=== PATIENT | male | born 1965 | race Caucasian/White ===

== ENCOUNTER 2018-05-26 08:41 | Emergency (ER) | payer SELFPAY ==
[2018-05-26] MEDS ORDERED: KETOROLAC TROMETHAMINE 60 MG/2 ML VIAL IM ONE (09:08)
[2018-05-26] MEDS ORDERED: ORPHENADRINE CITRATE 60 MG/2ML IM ONE (09:08)
--- NOTE | 2018-05-26 09:11 | ED Physician Documentation ---
Low Back Pain - HISTORIAN Historian: patient - HPI Stated Complaint: back pain Chief Complaint: Low Back Pain/ Injury History: history of chronic pain: Onset: days ago (05/24) Duration: continues in ED Severity: moderate Quality: similar- prior back pain Worsened By:: nothing Relieved By: nothing Further Comments: yes (52 year old male patient presents to ER requesting injection for back pain. Reports 5 year history of back pain related to L4-L5 injury, patient chose not to have surgical intervention. States he does not have a doctor or medical insurance, so he goes to the ER when his back "acts up".) - ROS CONST: no problems CVS/RESP: none EYES/ENT: none MS/SKIN/LYMPH: none Neuro/Psych: none GI/: denies: abdominal pain - PAST HX Past History: back injury, back pain Allergies/Adverse Reactions: Allergies Allergy/AdvReac Type Severity Reaction Status Date / Time ibuprofen Allergy Verified 05/26/18 08:57 Home Medications: Ambulatory Orders Medication Instructions Recorded NK 05/26/18 - SOCIAL HX Smoking History: cigarettes - FAMILY HX Family History: denies: none - VITAL SIGNS Vital Signs: Vital Signs Temp Pulse Resp BP Pulse Ox 97.9 F 60 14 112/68 96 05/26/18 08:49 05/26/18 09:47 05/26/18 09:47 05/26/18 09:47 05/26/18 09:47 - REVIEWED ASSESSMENTS Nursing Assessment Reviewed: Yes Vitals Reviewed: Yes ED Results Lab/Radiology - Orders Orders: ED Orders Category Date Time Status Ketorolac Tromethamine [Toradol] Med 05/26/18 09:08 Discontinued 60 mg IM NOW ONE Orphenadrine Citrate [Norflex] Med 05/26/18 09:08 Discontinued 60 mg IM NOW ONE Low Back Pain/Injury - Physical Exam General Appearance: mild distress EENT: eye inspection normal, ELBERT Resp/CVS: chest non-tender, breath sounds nml, heart sounds nml, no resp. di stress, lungs clear, reg. rate & rhythm Abdomen: non-tender, no organomegaly, no pulsatile mass Back: muscle spasm (lumber - right paraspinous muscles) Straight Leg Raising: No: Negative Left (patient will not lie down for testing; standing for comfort) Neuro/Psych: oriented x3, motor nml, sensation nml, bilat. doriflexion nml, reflexes nml, mood/affect nml Skin: normal color, warm/dry, NR, INT, PAL, DR Extremities: non-tender, normal range of motion, no evidence of injury, no edema, J, RENEWABLE ENERGY TECHNICIAN Discharge Clincal Impression: Myalgia Chronic back pain Qualifiers: Back pain location: low back pain Back pain laterality: right Sciatica presence: without sciatica Qualified Code(s): M54.5 - Low back pain; G89.29 - Other chronic pain Referrals: Primary Doctor,No [Primary Care Provider] - 2 Days Additional Instructions: Ice Rest Elevation You may use Tylenol every 4hour as needed for pain. Limit your dose to less than 4 G per day. Do not take ibuprofen, aleve, naproxen or any other NSAID while you are on toradol. You may want to try massage, over the counter lidocaine patches, biofreeze, abril ocampo or aspercream . If you are unable to bear weight and continuing to have significant pain on day 3-4; see your PCP for re-evaluation and additional xrays. Condition: Stable Disposition: 01 HOME, SELF-CARE Decision to Admit: NO Decision Time: 09:11
[2018-05-26 09:49] VITALS: BP 112/68
== END 2018-05-26 09:47 | disposition home or self-care (01) ==
LOC: ED 08:41
DX: M79.18 Myalgia, other site (principal); M54.5 Low back pain; G89.29 Other chronic pain
CPT/HCPCS: J1885; J2360; 96372; 99284

== ENCOUNTER 2018-10-14 14:22 | Emergency (ER) | payer SELFPAY ==
[2018-10-14] MEDS ORDERED: TETRACAINE 0.5% OPTH 5 ML BOTTLE OP ONE (14:41)
[2018-10-14 14:45] VITALS: BP 106/59
[2018-10-14] MEDS ORDERED: DIPH,PERTUSS(ACELL),TET VAC/PF 0.5 ML DISP.SYRIN IM ONE (14:53)
--- NOTE | 2018-10-14 15:19 | ED Physician Documentation ---
Eye Trauma - HISTORIAN Historian: patient - HPI Stated Complaint: L eye pain Chief Complaint: Eye Trauma (FB in left eye) Additional Information: Patient is a 53-year-old male that presents to the ER with c/o a piece of metal to the left eye. He states that he was sharpening a metal chair saw and thinks a piece of metal flew into his eye. He has been irrigating with water all day- he has been rubbing at it because it is irritating. He states that his vision is fine- denies blurred vision- but feels like he has something to the upper eye. Onset: hours (At 9 a.m.) Associated symptoms: pain, burining, itching, redness, foreign body. denies: decreased vision, blurred vision Location: left eye Severity: moderate Apparent Injury: possibly Context: foreign body. 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 denies: problems with vision GI/: denies: nausea, vomiting NEURO: denies: headache - PAST HX Past History: none Immunizations: denies: tetanus (unknown- will update today) Allergies/Adverse Reactions: Allergies Allergy/AdvReac Type Severity Reaction Status Date / Time ibuprofen Allergy Verified 10/14/18 14:45 Home Medications: Ambulatory Orders Medication Instructions Recorded Cyclopentolate HCl 2% Opth(Nf) 1 drop OP DAILY #1 bottle 10/14/18 [Cyclogyl 2% (Nf)] Sulfacetamide Sodium 2 drop OP QID #1 bottle 10/14/18 - SOCIAL HX Smoking History: greater than 1 pack/day Alcohol Use: rarely Drug Use: none - FAMILY HX Family History: no significant history - VITAL SIGNS Vital Signs: Vital Signs Temp Pulse Resp BP Pulse Ox 98.7 F 56 L 16 106/59 96 10/14/18 14:22 10/14/18 14:22 10/14/18 14:22 10/14/18 14:22 10/14/18 14:22 - REVIEWED ASSESSMENTS Nursing Assessment Reviewed: Yes Vitals Reviewed: Yes Procedures - Eye Procedure Alcaine Drops Administered: Yes Eye FB Removal: removal w/ needle Eye Irrigated w/ Saline (ccs): 60 Progress: Antibiotic drops ordered for infection and pain Progress - Progress Progress: Patient feels much better after FB removal- had patient wait until numbing drops wore off and reevaluated- states eye is much better- he no longer feels the foreign body- he states it is still a little "irritating"- educated on corneal abrasions and educated on using the eye drops as directed. ED Results Lab/Radiology - Orders Orders: ED Orders Category Date Time Status Diph,Pertuss(Acell),Tet Vac/Pf [Adacel] Med 10/14/18 14:53 Discontinued 0.5 ml IM .ONCE ONE Tetracaine HCl/Pf [Pontocaine Pf 0.5% Opth] Med 10/14/18 14:41 Discontinued 1 OP .STK-MED ONE Eye Trauma Physical Exam - Physical Exam General Appearance: alert, mild distress Examined with Slit Lamp: Yes Visual Acuity Right 20/: 30 Visual Acuity Left 20/: 30 Visual Acuity: no globe trauma Eyelids: nml inspection Conjunctiva and Sclera: injected (L) Corneas: foreign body (L), abrasion (L), fluorescein dye uptake (L), examined with fluorescein (L) EOM's: intact Pupils: PERRL Anterior Chambers: nml inspection Head/ENT: nml inspection, pharynx nml Skin: nml color, warm Neck/Back: nml inspection Respiratory: no resp distress, breath sounds normal CVS: heart sounds normal, equal pulses Neuro/Psych: oriented x3, neuro intact, mood/affect nml Discharge Clincal Impression: Foreign body of left eye, Corneal abrasion, left Prescriptions: Cyclopentolate HCl 2% Opth(Nf) [Cyclogyl 2% (Nf)] 1 drop OP DAILY #1 bottle Sulfacetamide Sodium 2 drop OP QID #1 bottle Referrals: Primary Doctor,No [Primary Care Provider] - 2 Days Additional Instructions: Sulfacetamide drops- 2 drops into the affected eye 4 times a day Cyclopentolate 1-2 drops daily to the affected eye until eye is healed Good hand washing DO NOT RUB THE EYE Follow up with business transformation manager this week if no improvement in 24 hours Return to ER if you develop severe pain or loss of vision to the eye Condition: Good Disposition: 01 HOME, SELF-CARE Decision to Admit: NO Decision Time: 15:30
== END 2018-10-14 15:27 | disposition home or self-care (01) ==
LOC: ED 14:22
DX: T15.02XA Foreign body in cornea, left eye, initial encounter (principal); X58.XXXA Exposure to other specified factors, initial encounter; Y93.89 Activity, other specified; Y92.009 Unspecified place in unspecified non-institutional (private) residence as the place of occurrence of the external cause
CPT/HCPCS: 65220; 90471; 90715; 99283

== ENCOUNTER 2018-10-18 12:43 | Emergency (ER) | payer SELFPAY ==
--- NOTE | 2018-10-18 13:19 | ED Physician Documentation ---
General Adult - HISTORIAN Historian: patient - HPI Stated Complaint: flu-like illness Chief Complaint: General Adult Onset: days ago Timing: still present Severity: moderate Further Comments: yes (Pt is a 53 yo male with flu-like sx. Pt has had sinus pain and cough. Pt is a heavy smoker.) - ROS CONST: no problems EYES/ENT: nasal congestion, other (sinus pain) CVS/RESP: cough GI/: none MS/SKIN/LYMPH: none - PAST HX Past History: none Allergies/Adverse Reactions: Allergies Allergy/AdvReac Type Severity Reaction Status Date / Time ibuprofen Allergy Verified 10/18/18 13:34 Home Medications: Ambulatory Orders Medication Instructions Recorded Cyclopentolate HCl 2% Opth(Nf) 1 drop OP DAILY #1 bottle 10/14/18 [Cyclogyl 2% (Nf)] Sulfacetamide Sodium 2 drop OP QID #1 bottle 10/14/18 - SOCIAL HX Smoking History: cigarettes - FAMILY HX Family History: No - VITAL SIGNS Vital Signs: Vital Signs Temp Pulse Resp BP Pulse Ox 106/59 10/14/18 15:27 - REVIEWED ASSESSMENTS Nursing Assessment Reviewed: Yes Vitals Reviewed: Yes Progress - Progress Progress: CXR: No focal infiltrate. Possible small lung nodule at the right lung base. In this high risk patient, chest CT would be recommended in an effort to exclude small mass. This follow-up chest CT could be obtained on a nonemergent basis. CT chest: HISTORY: 53-year-old male with abnormal chest x-ray demonstrating possible right lung nodule. COMPARISON: Chest x-ray from earlier same day. TECHNIQUE: Helical CT images of the chest were performed without contrast. Sagittal and coronal reformatted images were obtained. FINDINGS: There is a calcified granuloma in the right middle lobe (image 35, series 4), which corresponds to the nodule seen on recent chest x-ray. No suspicious pulmonary nodules are identified here. The lungs are hyperexpanded without bullous emphysematous changes. There is central peribronchial thickening and mild mucus plugging in the lung bases. No consolidative infiltrates, pneumothorax, pleural effusions, or pulmonary edema. The heart is not enlarged. No suspicious mediastinal or axillary adenopathy. There are calcified lymph nodes in the right hilum. No thoracic aortic aneurysm. There a re calcified granulomas in the liver and spleen. There is thoracic degenerative disc disease. IMPRESSION: 1. Old granulomatous disease of the chest, liver, and spleen. No suspicious pulmonary nodules are identified here. 2. Central peribronchial thickening with bilateral lung base mild mucus plugging suggestive of asthma and/or bronchitis. 3. Pulmonary hyperexpansion may indicate panlobular emphysema. d/c instr. Rx Amoxicillin 500 mg. Take one every 12 hours for 10 days. Nasal washes 1-2 times daily as tolerated. General Adult Physical Exam - PHYSICAL EXAM GENERAL APPEARANCE: thin body habitus EENT: pharynx normal NECK: normal inspection, supple RESPIRATORY: no resp distress, chest non-tender, breath sounds normal, other (distant breath sounds) CVS: reg rate & rhythm, heart sounds normal BACK: normal inspection SKIN: warm/dry, normal color EXTREMITIES: non-tender, normal range of motion, no evidence of injury NEURO: oriented X3, motor nml, sensation nml Discharge Clincal Impression: sinusitis, bronchitis Referrals: Primary Doctor,No [Primary Care Provider] - Condition: Stable Disposition: 01 HOME, SELF-CARE Decision to Admit: NO Decision Time: 15:45
--- NOTE | 2018-10-18 14:18 | Diagnostic Imaging Report ---
GERI GEORGE [facility] [address] [facility] [address] [place], [place]. [address] Report Submission Date: Oct 18, 2018 2:13:57 PM CDT Patient Study Name: JIMMY OCAMPO Date: Oct 18, 2018 1:37:01 PM CDT Modality Type: DX Gender: M Description: CHEST 2VIEW : 63 Institution: [facility] Physician: GERI GEORGE PA AND LATERAL CHEST HISTORY: Short of breath. Recent influenza COMPARISON: None PA and Lateral Chest dated October 18, 2018 demonstrates a normal cardiomediastinal silhouette. Pulmonary vascularity is normal. There is no infiltrate or pleural effusion. Laterally at the right lung base, there is equivocally a faint 5-6 mm nodule. This patient is a smoker, high risk. Consider follow-up chest CT in an effort to exclude a small lung nodule. IMPRESSION: No focal infiltrate. Possible small lung nodule at the right lung base. In this high risk patient, chest CT would be recommended in an effort to exclude small mass. This follow- up chest CT could be obtained on a nonemergent basis. Electronically signed on Oct 18, 2018 2:13:57 PM CDT by: Comfort JANE
--- NOTE | 2018-10-18 14:59 | Diagnostic Imaging Report ---
GERI GEORGE [facility] [address] [facility] [address] [place], [place]. [address] Report Submission Date: Oct 18, 2018 2:57:24 PM CDT Patient Study Name: JIMMY OCAMPO Date: Oct 18, 2018 2:30:58 PM CDT Modality Type: CT Gender: M Description: CT CHEST W/O CONTRAST : 63 Institution: [facility] Physician: GERI GEORGE HISTORY: 53-year-old male with abnormal chest x-ray demonstrating possible right lung nodule. COMPARISON: Chest x-ray from earlier same day. TECHNIQUE: Helical CT images of the chest were performed without contrast. Sagittal and coronal reformatted images were obtained. FINDINGS: There is a calcified granuloma in the right middle lobe (image 35, series 4), which corresponds to the nodule seen on recent chest x-ray. No suspicious pulmonary nodules are identified here. The lungs are hyperexpanded without bullous emphysematous changes. There is central peribronchial thickening and mild mucus plugging in the lung bases. No consolidative infiltrates, pneumothorax, pleural effusions, or pulmonary edema. The heart is not enlarged. No suspicious mediastinal or axillary adenopathy. There are calcified lymph nodes in the right hilum. No thoracic aortic aneurysm. There are calcified granulomas in the liver and spleen. There is thoracic degenerative disc disease. IMPRESSION: 1. Old granulomatous disease of the chest, liver, and spleen. No suspicious pulmonary nodules are identified here. 2. Central peribronchial thickening with bilateral lung base mild mucus plugging suggestive of asthma and/or bronchitis. 3. Pulmonary hyperexpansion may indicate panlobular emphysema. Electronically signed on Oct 18, 2018 2:57:24 PM CDT by: Marvin JANE
[2018-10-18 15:48] VITALS: BP 115/74
== END 2018-10-18 15:48 | disposition home or self-care (01) ==
LOC: ED 12:43
DX: J32.9 Chronic sinusitis, unspecified (principal); J40 Bronchitis, not specified as acute or chronic; Z72.0 Tobacco use
CPT/HCPCS: 71046; 71250; 87400; 99283; 99285

== ENCOUNTER 2019-04-01 09:34 | Emergency (ER) | payer OTHER ==
--- NOTE | 2019-04-01 09:53 | ED Physician Documentation ---
Low Back Pain - HISTORIAN Historian: patient - HPI Stated Complaint: low back pain Chief Complaint: Low Back Pain/ Injury Additional Information: Patient presents to ED with low back pain with radiation down left leg. Patient reports "crush" injury to L4 in 2012. At that time surgery was recommended, however, patient declined. Patient reports low back pain flares about once a year which responds to steroids and muscle relaxers. This year he reports 4 flares with less time in between each flares. Over the past 2 weeks he states he has trouble lifting his left foot while walking. He denies any new injury, no loss of bowel or bladder control. History: history of chronic pain:, back pain Onset: days ago (3) Duration: continues in ED Recent Injury: No Context: other (walking) Where: home Other Injuries: back Severity: severe Quality: sharp, dull, similar- prior back pain Associated Symptoms: denies: fever, chills Worsened By:: supine Relieved By: upright position - ROS CONST: no problems CVS/RESP: none EYES/ENT: none MS/SKIN/LYMPH: leg pain (left ) Neuro/Psych: denies: headache GI/: denies: abdominal pain - PAST HX Past History: back injury, back pain Surgeries/Procedures: denies: back surgery Allergies/Adverse Reactions: Allergies Allergy/AdvReac Type Severity Reaction Status Date / Time ibuprofen Allergy Verified 04/01/19 09:48 Home Medications: Ambulatory Orders Medication Instructions Recorded Orphenadrine (Nf) [Norflex (Nf)] 100 mg PO BID PRN #40 tablet.er 04/01/19 Tramadol HCl [Ultram] 50 mg PO Q8 PRN #15 tablet 04/01/19 predniSONE [Deltasone] 10 mg PO DAILY #30 tablet 04/01/19 - SOCIAL HX Smoking History: cigarettes, greater than 1 pack/day Alcohol Use: none Drug Use: marijuana - FAMILY HX Family History: none - VITAL SIGNS Vital Signs: Vital Signs Temp Pulse Resp BP Pulse Ox 98.5 F 53 L 14 134/58 99 04/01/19 09:36 04/01/19 09:36 04/01/19 09:36 04/01/19 09:36 04/01/19 09:36 - REVIEWED ASSESSMENTS Nursing Assessment Reviewed: Yes Vitals Reviewed: Yes ED Results Lab/Radiology - Radiology Radiology Impressions: Report Submission Date: Apr 01, 2019 10:44:04 AM CDT Patient Study Name: JIMMY OCAMPO Date: Apr 01, 2019 10:12:12 AM CDT Modality Type: CT\\SR Gender: M Description: CT L-SPINE W/O CONTRAS : 63 Institution: [facility] Physician: LESLIE ABAD Exam: CT lumbar spine. History: Low back pain. Axial images through the lumbar spine are submitted along with sagittal and coronal reformatted images. In the sagittal images mild retrolisthesis of L2 on L3 is identified. A compression deformity through the superior endplate of T12 is of undetermined age. The remaining vertebral body heights are adequately maintained. Schmorl's node at the inferior endplate of L1 is noted. Endplate sclerosis and spurring throughout the lumbar spine is noted. In the axial images there is redemonstration of a fracture through the superior surface of the T12 vertebral body of undetermined age. There is redemonstration of a Schmorl's node noted at the inferior endplate of L1. A diffuse bulging discs at L2-3 level is noted with encroachment on the intervertebral foramina bilaterally. Diffuse bulging discs and redundancy to the ligamentum flavum at L4-5 level is noted. Broad-based disc protrusion to the left at L5-S1 level is noted. Neural canal is otherwise adequate. Impression: Retrolisthesis of L2 on L3. Compression deformity of undetermined age noted at the T12 superior endplate. MRI may be beneficial to further evaluate. Schmorl's node at the inferior endplate of L1. Diffuse bulging discs at L2-3 level is noted with some encroachment on the intervertebral foramina bilaterally. Diffuse bulging discs at L4-5 level. Broad-based disc protrusion to the left at L5-S1 level. MRI may be beneficial to further evaluate. Electronically signed on Apr 01, 2019 10:44:04 AM CDT by: Dieudonne Marrufo - Orders Orders: ED Orders Category Date Time Status CT L-SPINE W/O CONTRAST Stat Exams 04/01/19 Completed Orphenadrine (Nf) [Norflex (Nf)] Med 04/01/19 10:10 Discontinued 100 mg PO NOW ONE Orphenadrine Citrate [Norflex] Med 04/01/19 10:48 Discontinued 60 mg IM NOW ONE methylPREDNISolone SOD SUCC [SOLU-Medrol] Med 04/01/19 10:08 Discontinued 125 mg IM NOW ONE Low Back Pain/Injury - Physical Exam General Appearance: no acute distress, alert EENT: ENT inspection normal Neck: non-tender, painless ROM Resp/CVS: chest non-tender, breath sounds nml Abdomen: non-tender Back: muscle spasm (left lower/left glute) Straight Leg Raising: Positive Left Neuro/Psych: oriented x3, difficulty walking (left foot drop) Skin: warm/dry Extremities: non-tender, normal range of motion, no evidence of injury Discharge Clincal Impression: Bulging of intervertebral disc between L4 and L5 Prescriptions: Orphenadrine (Nf) [Norflex (Nf)] 100 mg PO BID PRN #40 tablet.er PRN Reason: muscle spasm predniSONE [Deltasone] 10 mg PO DAILY #30 tablet Tramadol HCl [Ultram] 50 mg PO Q8 PRN #15 tablet PRN Reason: back pain Referrals: Primary Doctor,No [Primary Care Provider] - 2 Days Additional Instructions: 1. Avoid lifting > 5 pounds. Stop Smoking 2. Take Prednisone, Norflex and Tramadol as directed. Rx sent to [facility] 3. Apply ice and/or heat to affected area as needed for comfort 4. Try over the counter lidocaine patches, biofreeze, aspercreme or icy/hot 5. Follow up with Dr. Miles (Spine) and Dr. Sidhu (pain management). You will be contacted with appointment times 6. Office number is [phone] 7. Return to ER for new or worsening symptoms Condition: Stable Disposition: 01 HOME, SELF-CARE Decision to Admit: NO Date of Decison to Admit: 04/01/19 Decision Time: 10:52
[2019-04-01] MEDS: methylPREDNISolone SOD SUCC 125 MG/2 ML VIAL IM ONE (10:25)
[2019-04-01] MEDS: ORPHENADRINE (NF) 100 MG TABLET.ER PO ONE (10:35)
--- NOTE | 2019-04-01 10:46 | Diagnostic Imaging Report ---
LESLIE ABAD [facility] [address] [facility] [address] [place], [place]. [address] Report Submission Date: Apr 01, 2019 10:44:04 AM CDT Patient Study Name: JIMMY OCAMPO Date: Apr 01, 2019 10:12:12 AM CDT Modality Type: CT\SR Gender: M Description: CT L-SPINE W/O CONTRAS : 63 Institution: [facility] Physician: LESLIE ABAD Exam: CT lumbar spine. History: Low back pain. Axial images through the lumbar spine are submitted along with sagittal and coronal reformatted images. In the sagittal images mild retrolisthesis of L2 on L3 is identified. A compression deformity through the superior endplate of T12 is of undetermined age. The remaining vertebral body heights are adequately maintained. Schmorl's node at the inferior endplate of L1 is noted. Endplate sclerosis and spurring throughout the lumbar spine is noted. In the axial images there is redemonstration of a fracture through the superior surface of the T12 vertebral body of undetermined age. There is redemonstration of a Schmorl's node noted at the inferior endplate of L1. A diffuse bulging discs at L2-3 level is noted with encroachment on the intervertebral foramina bilaterally. Diffuse bulging discs and redundancy to the ligamentum flavum at L4-5 level is noted. Broad-based disc protrusion to the left at L5-S1 level is noted. Neural canal is otherwise adequate. Impression: Retrolisthesis of L2 on L3. Compression deformity of undetermined age noted at the T12 superior endplate. MRI may be beneficial to further evaluate. Schmorl's node at the inferior endplate of L1. Diffuse bulging discs at L2-3 level is noted with some encroachment on the intervertebral foramina bilaterally. Diffuse bulging discs at L4-5 level. Broad-based disc protrusion to the left at L5-S1 level. MRI may be beneficial to further evaluate. Electronically signed on Apr 01, 2019 10:44:04 AM CDT by: Dieudonne JANE
[2019-04-01] MEDS: ORPHENADRINE CITRATE 60 MG/2 ML ML IM ONE (10:55)
[2019-04-01 11:34] VITALS: BP 133/79
== END 2019-04-01 11:27 | disposition home or self-care (01) ==
LOC: ED 09:34
DX: M51.26 Other intervertebral disc displacement, lumbar region (principal)
CPT/HCPCS: 72131; 96372; 99284; J2930; J2360

== ENCOUNTER 2019-04-14 10:05 | Outpatient (CLI) | payer OTHER ==
--- NOTE | 2019-04-16 14:15 | Diagnostic Imaging Report ---
BENJIE HUBBARD [facility] [address] [facility] [address] [place], [place]. [address] Report Submission Date: Apr 14, 2019 12:07:57 PM CDT Patient Study Name: JIMMY OCAMPO Date: Apr 14, 2019 11:29:30 AM CDT Modality Type: DX Gender: M Description: L SPINE 6 VIEWS : 63 Institution: [facility] Physician: BENJIE HUBBARD Lumbar spine 7 total views Indication: Low back pain Findin total views of the lumbar spine to include flexion extension views shows endplate degenerative changes. There is no acute fracture,subluxation or dislocation. There is minimal retrolisthesis of L2 upon L3. This is unchanged on flexion and extension views. There is mild intervertebral disc space narrowing of L4-5. Impression: Degenerative changes. mild retrolisthesis L2 upon L3 Electronically signed on Apr 14, 2019 12:07:57 PM CDT by: Wilfrid JANE
--- NOTE | 2019-04-16 14:15 | Diagnostic Imaging Report ---
BENJIE HUBBARD [facility] [address] [address] [facility] [address] [address] Report Submission Date: Apr 14, 2019 12:05:21 PM CDT Patient Study Name: JIMMY OCAMPO Date: Apr 14, 2019 11:29:30 AM CDT Modality Type: DX Gender: M Description: PELVIS AP 1 OR 2 VIEWS : 63 Institution: [facility] Physician: BENJIE HUBBARD Pelvis AP view Indication: Low back pain Findings: Shape of view of the pelvis without prior shows no acute fracture, subluxation or dislocation. Femoral heads are well seated in their respective acetabular fossa. Impression: No acute osseous abnormality Electronically signed on Apr 14, 2019 12:05:21 PM CDT by: Wilfrid JANE
--- NOTE | 2019-04-17 10:36 | CONSULTATION REPORT ---
DATE OF VISIT: 04/14/2019 CHIEF COMPLAINT: Low back pain, left lower extremity pain. HISTORY OF PRESENT ILLNESS: Mr. Miller is a 53-year-old male patient presenting for initial evaluation for low back pain and left lower extremity pain. The patient had an injury in 2012 where he was climbing up a step ladder, hit the top of his head on a light fixture and subsequently fell off the ladder. He has had back pain since. He was seen in the ER at that time and told that he had a "crush" injury to the L4. He reports that surgery was recommended at that time, however, the patient declined. The patient had only been having intermittent low back pain until approximately the last year. He in the last year has had less time in between exacerbations. Up until recently his back pain and leg pain would respond to steroids and muscle relaxants. Over the last three to four months his back pain has become constant. The patient describes his low back pain as constant aching, spasming and is sharp. He has radicular pain down the posterior left lower extremity from the buttocks down to the foot. He does have intermittent numbness and tingling in the same distribution. He denies lower extremity weakness, urinary/bowel incontinence or saddle anesthesias. The patient has had the medication management that we discussed above which is steroid treatment and muscle relaxants as well as he has tried chiropractic in the past. PAST MEDICAL HISTORY: Positive for back pain and anxiety. PAST SURGICAL HISTORY: Includes a left elbow fracture repair. SOCIAL HISTORY: The patient has smoked one pack per day for the last 13 years. Previous ETOH use, last use was 20 years ago. The patient is and occupation is unemployed. FAMILY HISTORY: Includes mother with hypertension and a stroke. CURRENT MEDICATIONS: The patient has tramadol 50 mg that he can take one p.o. one to two times a day as needed. MEDICATION ALLERGIES: Ibuprofen - it caused hives and difficulty breathing. REVIEW OF SYSTEMS: A complete 14 point review of systems was completed, please refer to that documentation for the full review. Pertinent to today's exam musculoskeletal is positive for low back pain and muscle spasms. Neurologic is positive for numbness and tingling left lower extremity. OBJECTIVE: General: This is a thin male patient presenting in [facility]. Vital Signs: The patient is 5 feet 7 inches tall. Weighs 112 pounds, temperature is 98.5, pulse 54, respiratory rate is 18, blood pressure is 111/71 with an SaO2 of 96% on room air. He is rating his pain a 5/10 today. Psych: He is alert and oriented x3. He is calm, pleasant and cooperative. HEENT: He is normocephalic and atraumatic. Sclerae is clear. Pupils are equal and round without miosis. Trachea is midline. No cervical lymphadenopathy. No thyromegaly. CV: Normal S1, S2. Regular rate and rhythm. No murmurs, gallops or rubs. No lower extremity edema. Pulmonary: Nonlabored respirations. Clear to auscultation throughout. GI: Abdomen is soft, nontender, nondistended. Bowel sounds present in all four quadrants. : Deferred. Musculoskeletal: Station is normal. Gait is slightly antalgic. On inspection of the head, neck, thorax, spine, upper and lower extremities, there are no gross deformities. The patient is tender to palpation over the L4-L5 and L5-S1, spinous processes and facet joints as well as the lumbar paraspinal muscles. He has mild tenderness to the left SI joint. Right SI joint is nontender. The patient achieves lumbar flexion to fingertips approximately 12 inches from the floor. He has limited extension with end range pain. Bilateral Crawford's is positive for axial low back pain only. Seated straight leg raise is positive on the left for low back pain only. On lower extremity strength testing, bilateral lower extremities are equal and strong, rated 5/5 in hip flexion, knee extension, knee flexion, dorsiflexion and plantar flexion. Except that he has decreased muscle strength during left knee flexion and that is graded 4/5. Deep tendon reflexes are 2+ bilateral patellae. Neurologic: Cranial nerves II through XII are grossly intact. Sensation to light touch is intact to bilateral lower extremities. IMAGING REVIEWED: I do have a CT lumbar spine without contrast performed on 04/01/2019 here at [facility]. Impression: 1. Retrolisthesis of L2 on L3. 2. Compression deformity of undetermined age at the T12 superior endplate. 3. Schmorl's node at the inferior endplate of L1. 4. Diffuse disc bulging at L2-L3 with some encroachment on intervertebral foramina bilaterally. 5. Diffuse disc bulging at the L4-L5 level. 6. Broad-based disc protrusion to the left at the L5-S1 level. The radiologist does recommend MRI for further evaluation. IMPRESSIONS: 1. Low back pain. 2. Lumbar DDD. 3. Lumbar radiculopathy. PLAN: 1. Today I have ordered an L-spine x-ray series with extension and flexion. 2. I have also ordered an AP pelvis x-ray. 3. I am ordering an MRI of the left L-spine without contrast. The patient has been advised to bring the disc of that study. 4. I want the patient to consult with Dr. Jessica. 5. Schedule lumbar epidural steroid injection at the L5-S1 with Dr. Sidhu. 6. The patient to follow up in three to four weeks. I did write prescription for diclofenac 50 mg one p.o. b.i.d. p.r.n., dispense #60 with no refills, Norflex 100 mg one p.o. b.i.d. p.r.n. spasms, #60 with no refills and tramadol 50 mg one p.o. one to two times per day p.r.n. pain, dispense #45 with no refills. The patient did verbalize understanding and agrees with the current treatment plan. DONTAE Trivediurse Practitioner (Dictated/not signed) /[employer] [id number] /mab MTDD
== END 2019-04-14 11:05 ==
LOC: OUT 10:05
PROVIDERS: ATTEND Nurse Practitioner Adult Health
DX: M51.36 Other intervertebral disc degeneration, lumbar region (principal); M54.16 Radiculopathy, lumbar region
CPT/HCPCS: 72170; 99203

== ENCOUNTER 2019-06-09 14:34 | Outpatient (CLI) | payer OTHER ==
--- NOTE | 2019-06-12 15:23 | OP Clinic Progress Note ---
DATE OF VISIT: 06/09/2019 CHIEF COMPLAINT: Low back pain, left lower extremity pain. HISTORY OF PRESENT ILLNESS: Mr. Miller is a 54-year-old male patient presenting for follow up low back pain and left lower extremity pain. The patient had an injury initially in 2012 when he was climbing up a stepladder, hit the top of his head on a light fixture and subsequently fell off of the ladder. He has had back pain ever since that injury. He was seen in the ER after the accident and told that he had a "crush injury" to the L4. He reports that surgery was recommended at the time, however the patient declined surgery. In the last year his back pain has significantly worsened. He describes his low back pain as constant aching, sharp with muscle spasms. He does have pain that radiates down the posterior left lower extremity from the buttocks down to the foot. He does have intermittent numbness and tingling in the same distribution. He denies lower extremity weakness, urinary/bowel incontinence or saddle anesthesia. Prior to his care here the patient has had intermittent steroid treatment as well as muscle relaxants and child care associate in the past. The patient was prescribed diclofenac, Norflex and tramadol at last visit, which the patient reports improves his pain symptoms. He denies any medication side effects or concerns at this time. At last appointment I had referred the patient for consultation for LUIZA, however the patient declined to do this. I did also refer the patient for a lumbar epidural steroid injection at the L5-S1 level with Dr. Sidhu and unfortunately insurance has denied this stating that the patient must undergo a physical therapy or home exercise program prior to injections being done. PFSH: Reviewed. REVIEW OF SYSTEMS: Review of systems from date of service 04/14/2019 were reviewed and remain unchanged. OBJECTIVE: General: This is a thin male patient presenting in no acute distress. Vital Signs: The patient is 5 feet, 7 inches tall, weighs 117 pounds. Temperature is 97.7, pulse 63, respiratory rate is 18, blood pressure is 111/64 with an SaO2 of 97% on room air. The patient is rating his pain at 5/10 today. Psych: He is alert and oriented x3. He is calm, pleasant and cooperative. HEENT: He is normocephalic and atraumatic. Pupils are equal and round without miosis. Sclerae are clear. Musculoskeletal: The patient is tender to palpation over the bilateral L4-L5 and L5-S1 facet joints, spinous processes as well as the lumbar paraspinal muscles. He does continue to have mild tenderness to palpation over the left SI joint. Neuro: Cranial nerves II-XII are grossly intact. The patient does walk with a slightly antalgic gait. IMPRESSION: 1. Chronic lumbago. 2. Lumbar DDD. 3. Lumbar radiculopathy. PLAN: 1. Today I have ordered a low back pain home exercise program with return demonstration from the patient. The patient will do these exercises over the next four to six weeks and we will reevaluate his pain at that time. 2. The patient is to follow up in four to six weeks for reevaluation. 3. I have provided the patient refills of tramadol 50 mg one tab one to two times per day p.r.n., dispense #45 with no refills; Norflex 100 mg one p.o. b.i.d. p.r.n., dispense #60 with two refills and diclofenac 50 mg one p.o. b.i.d. with food, dispense #60 with two refills. DONTAE Trivediurse Practitioner /[employer] [id number] jose antonio JANE
== END 2019-06-09 15:34 ==
LOC: OUT 14:34
PROVIDERS: ATTEND Nurse Practitioner Adult Health
DX: M51.16 Intervertebral disc disorders with radiculopathy, lumbar region (principal)
CPT/HCPCS: 99213

== ENCOUNTER 2019-07-14 12:54 | Outpatient (CLI) | payer OTHER ==
--- NOTE | 2019-07-17 08:07 | OP Clinic Progress Note ---
DATE OF VISIT: 07/14/2019 CHIEF COMPLAINT: Low back pain, left lower extremity pain. HPI: Mr. Miller is a 54-year-old male patient presenting for followup low back pain and left lower extremity pain. The patient initially had an injury in 2012 when he was climbing up a step ladder, hit the top of his head on a light fixture and subsequently fell off the ladder. He has had back pain ever since that injury. He was seen in the ER after that accident and told he had a crush injury to the L4. He reports that surgery was recommended at the time, however the patient declined surgery. In the last year his back pain has significantly worsened. He describes his low back pain as constant, aching, and sharp with muscle spasms. He does have pain that radiates down the posterior left lower extremity from the buttock to the foot. He does have intermittent numbness and tingling in the same distribution. He denies any lower extremity weakness, urinary/bowel continence or saddle anesthesia. Prior to his care here the patient has had intermittent steroid treatment as well as muscle relaxants and rn progressive care unit. I prescribed the patient diclofenac, Norflex and tramadol for which the patient reports improvement in his pain symptoms. He has noticed some nausea when taking the tramadol stating that he can barely take it related to the side effect. He also tells me that he had nausea and vomiting with Dukedom. He previously reports doing okay with plain oxycodone without side effects. I had referred the patient for consultation for LUIZA, however the patient declined. I had also referred the patient for lumbar epidural steroid injections, however the patient had to participate in physical therapy or a home exercise program first. He now has done this. However, the exercises are difficult to do and at times cause increased pain. PFSH: Reviewed and unchanged. REVIEW OF SYSTEMS: ROS from date of service 04/14/2019 was reviewed and remain unchanged. PHYSICAL EXAMINATION: General: This is a thin male patient presenting in no acute distress. Vital Signs: Height is five foot seven inches. Weight 117 pounds. Temperature 99.0. Pulse 73. Respiratory rate 18. Blood pressure 108/56. SaO2 100% on room air. Pain is rated 4-5/10. Psych: Alert and oriented x3. He is calm, pleasant and cooperative. HEENT: Normocephalic and atraumatic. Pupils are equal and round without miosis bilaterally. Sclerae are clear. Musculoskeletal: Patient is tender to palpation over the bilateral L4-5 and L5- S1 facet joint spinous processes as well as lumbar paraspinals. Bilateral lower extremity strength is equal and strong, all areas graded 5/5. Seated straight leg raise on the left elicits low back pain, however no radicular pain. Neuro: Cranial nerves II-XII are grossly intact. The patient does walk with a slightly antalgic gait. ASSESSMENT: 1. Chronic lumbago. 2. Lumbar DDD. 3. Lumbar radiculopathy. PLAN: 1. Today I am reordering the lumbar epidural steroid injection #1 at the L5-S1 level with Dr. Sidhu as the patient has completed a home exercise program without improvement in his pain symptoms. 2. The patient is to continue on his diclofenac and Norflex and has refills of this. 3. The patient is to continue his tramadol and we will consider changing at his injection appointment or thereafter. 4. The patient is to follow up in one month or sooner if needed. The patient verbalizes understanding and agrees to the current treatment plan. Olivia Valentino NP Nurse Practitioner NICKY/jose antonio JOB#: [id number] MTDD
== END 2019-07-14 13:55 ==
LOC: OUT 12:54
PROVIDERS: ATTEND Nurse Practitioner Adult Health
DX: M51.16 Intervertebral disc disorders with radiculopathy, lumbar region (principal)
CPT/HCPCS: 99213

== ENCOUNTER 2019-08-11 12:56 | Outpatient (CLI) | payer OTHER ==
--- NOTE | 2019-08-14 09:29 | OP Clinic Progress Note ---
DATE OF VISIT: 08/11/2019 CHIEF COMPLAINT: Low back pain, left lower extremity pain. HISTORY OF PRESENT ILLNESS: Mr. Miller is a 54-year-old male patient presenting for followup of low back pain and left lower extremity pain. The patient initially had an injury in 2012 when he was climbing up a stepladder, hit the top of his head on a light fixture and subsequently fell off the ladder. He has had back pain ever since that injury. He was seen in the ER after the accident and told he had a crush injury to the L4. He reports that surgery was recommended at that time, however, the patient declined surgery. In the last year, his back pain has significantly worsened. He describes his low back pain is constant, achy and sharp with muscle spasms. He does have pain that radiates down the posterior left lower extremity from the buttock to the foot. He does have intermittent numbness and tingling in the same distribution. He denies any lower extremity weakness, urinary/bowel incontinence or saddle anesthesias. Prior to his care here the patient has had intermittent steroid treatment as well as muscle relaxant and daytime caregiver. Most recently I have been prescribing the patient diclofenac, Norflex and tramadol, which improves the patient's pain symptoms. Unfortunately, the patient notices nausea after taking the tramadol and has quit taking the tramadol related to this. The patient reports previously taking oxycodone and doing okay with it without side effects. The patient was referred for consultation for LUIZA, however, the patient declines to do this. The patient has continued in home exercise program without any significant improvement in his pain symptoms. I had ordered a lumbar epidural steroid injection at his last appointment, however, we are awaiting insurance approval for this. PMFSH: Reviewed and unchanged from date of service 07/14/2019. REVIEW OF SYSTEMS: From date of service 07/14/2019 was reviewed and remains unchanged. PHYSICAL EXAMINATION: General: This is a thin male patient presenting in [facility]. Vital Signs: The patient is 5 feet, 10 inches tall, weighs 120 pounds. Temperature is 98.6, pulse 65, respiratory rate is 18, blood pressure is 113/65 with an SaO2 of 98% on room air. Psych: He is alert and oriented x3. He is calm, pleasant and cooperative. HEENT: He is normocephalic and atraumatic. Pupils are equal and round without miosis bilaterally. Sclerae is clear. Musculoskeletal: The patient has tenderness to palpation over the bilateral L4- 5 and L5-S1 facet joints, spinous processes as well as lumbar paraspinals. Bilateral lower extremity strength is equal and strong in all areas graded 5/5. Seated straight leg raise on the left elicits low back pain, however, no radicular pain. Neuro: Cranial nerves II through XII are grossly intact. The patient does walk with a slightly antalgic gait related to pain. ASSESSMENT: 1. Chronic lumbago. 2. Lumbar DDD. 3. Lumbar radiculopathy. PLAN: 1. We are awaiting his first lumbar epidural steroid injection to be approved by insurance. 2. I have provided a prescription for [place] 5/325 mg one b.i.d. p.r.n. dispense #60 with no refills, diclofenac 75 mg b.i.d. with food #60, no refills and the patient has refills of his Norflex. 3. The patient is to follow up in one month or sooner if needed. The patient verbalizes understanding and agrees with the current treatment plan. DONTAE Trivediurse Practitioner /[employer] [id number] /mab BUCK
== END 2019-08-11 13:56 ==
LOC: OUT 12:56
PROVIDERS: ATTEND Nurse Practitioner Adult Health
DX: M51.16 Intervertebral disc disorders with radiculopathy, lumbar region (principal)
CPT/HCPCS: 99214